=== PATIENT | female | born 2000 | race Caucasian/White ===

== ENCOUNTER 2021-12-10 16:19 | Emergency (ER) | payer MEDICAID ==
[~2021-12-10] VITALS: Ht 165.1 cm; Wt 90.0 kg
[2021-12-10 16:51] VITALS: BP 111/61
== END 2021-12-10 19:04 | disposition left against medical advice (07) ==
LOC: ER 16:19
DX: Z53.21 Procedure and treatment not carried out due to patient leaving prior to being seen by health care provider (principal)

== ENCOUNTER 2022-02-22 02:25 | Emergency (ER) | payer MEDICAID, OTHER ==
[~2022-02-22] VITALS: Ht 157.5 cm; Wt 87.4 kg
[2022-02-22] MEDS ORDERED: METHOCARBAMOL 500MG TABLET PO ONE (03:45)
[2022-02-22] MEDS ORDERED: HYDROCODONE/ACETAMINOPHEN 5/325MG TABLET PO ONE (03:45)
[2022-02-22 04:25] VITALS: BP 143/84
[2022-02-22] MEDS ORDERED: NAPR-681 MT (05:32)
[2022-02-22] MEDS ORDERED: METH-773 MT (05:32)
== END 2022-02-22 05:41 | disposition home or self-care (01) ==
LOC: ER 03:23
DX: S00.83XA Contusion of other part of head, initial encounter (principal); S16.1XXA Strain of muscle, fascia and tendon at neck level, initial encounter; V43.52XA Car driver injured in collision with other type car in traffic accident, initial encounter; Y93.89 Activity, other specified; Y92.488 Other paved roadways as the place of occurrence of the external cause
CPT/HCPCS: 73030; 81025; 99284